=== PATIENT | female | born 1945 | race Caucasian/White ===

== ENCOUNTER → 2021-08-07 | Outpatient (CLI) | payer MEDICARE | LOC: EXRD 13:00 | DX: Z78.0 Asymptomatic menopausal state (principal) | CPT/HCPCS: 77080 ==

== ENCOUNTER → 2021-08-29 | Outpatient (CLI) | payer MEDICARE | LOC: RAD 16:34 | DX: R05.1 Acute cough (principal) | CPT/HCPCS: 71046 ==

== ENCOUNTER → 2022-03-23 | Outpatient (CLI) | payer MEDICARE ==
[2022-03-23 13:27] LABS: HEMOGLOBIN 13.6 gm/dl (12.3-15.3); RED BLOOD COUNT 4.34 M/UL (4.00-5.10); WHITE BLOOD COUNT 4.4 K/UL (4.5-11.0)
[2022-03-23 13:45] LABS: BUN/CREATININE RATIO 19 (0-10)
== END ==
LOC: LAB 12:42
PROVIDERS: Nurse Practitioner Family
DX: I10 Essential (primary) hypertension (principal); E55.9 Vitamin D deficiency, unspecified
CPT/HCPCS: 36415; 80053; 80061; 82607; 84439; 84443; 85025

== ENCOUNTER → 2022-03-28 | Outpatient (CLI) | payer MEDICARE | LOC: EXRD 11:31 | DX: M54.50 Low back pain, unspecified (principal); M25.572 Pain in left ankle and joints of left foot; M47.816 Spondylosis without myelopathy or radiculopathy, lumbar region; M19.072 Primary osteoarthritis, left ankle and foot | CPT/HCPCS: 72110; 73610 ==